=== PATIENT | female | born 1960 | race Caucasian/White ===

== ENCOUNTER → 2016-10-26 | Outpatient (REF) | payer BC ==
[2016-10-26 14:02] LABS: BLOOD UREA NITROGEN 20 MG/DL (7-18); CREATININE FOR GFR 0.72 MG/DL (0.55-1.02); GLUCOSE, FASTING 105 MG/DL (70-105)
[2016-10-26 14:03] LABS: ALBUMIN 3.4 GM/DL (3.2-5.2); ALBUMIN/GLOBULIN RATIO 1.03 (1.00-1.93); ALKALINE PHOSPHATASE 91 U/L (45-117); ALT/SGPT 27 U/L (12-78); ANION GAP 6 MEQ/L (8-16); AST/SGOT 12 U/L (15-37); BILIRUBIN,TOTAL 0.3 MG/DL (0.2-1.0); CALCIUM LEVEL 9.1 MG/DL (8.5-10.1); CARBON DIOXIDE LEVEL 31 MEQ/L (21-32); CHLORIDE LEVEL 106 MEQ/L (98-107); CHOLESTEROL LEVEL 211 MG/DL (<200); GLOMERULAR FILTRATION RATE > 60.0 (>51); POTASSIUM SERUM 4.6 MEQ/L (3.5-5.1); SODIUM LEVEL 143 MEQ/L (136-145); TOTAL PROTEIN 6.7 GM/DL (6.4-8.2); TRIGLYCERIDES LEVEL 116 MG/DL (<150)
[2016-10-26 14:17] LABS: MEAN CORPUSCULAR HEMOGLOBIN 30.7 pg (27.0-33.0); MEAN CORPUSCULAR HGB CONC 32.5 g/dl (32.0-36.5); MEAN CORPUSCULAR VOLUME 94.5 fl (80.0-96.0); RED CELL DISTRIBUTION WIDTH 13.7 % (11.5-14.5); WHITE BLOOD COUNT 6.8 K/mm3 (4.0-10.0)
== END ==
LOC: M LABDRAWC 12:12
PROVIDERS: ATTEND Family Medicine
DX: Z79.899 Other long term (current) drug therapy (principal)

== ENCOUNTER → 2017-11-08 | Outpatient (REF) | payer BC ==
[2017-11-08 13:03] LABS: ALBUMIN 3.3 GM/DL (3.2-5.2); ALBUMIN/GLOBULIN RATIO 0.92 (1.00-1.93); ALKALINE PHOSPHATASE 90 U/L (45-117); ALT/SGPT 22 U/L (12-78); ANION GAP 9 MEQ/L (8-16); AST/SGOT 10 U/L (7-37); BILIRUBIN,TOTAL 0.4 MG/DL (0.2-1.0); BLOOD UREA NITROGEN 12 MG/DL (7-18); CALCIUM LEVEL 8.5 MG/DL (8.5-10.1); CARBON DIOXIDE LEVEL 26 MEQ/L (21-32); CHLORIDE LEVEL 109 MEQ/L (98-107); CHOLESTEROL LEVEL 194 MG/DL (<200); CHOLESTEROL RISK RATIO 3.959 (<5); CREATININE FOR GFR 0.68 MG/DL (0.55-1.30); GLOMERULAR FILTRATION RATE > 60.0 (>51); GLUCOSE, FASTING 96 MG/DL (70-100); HDL CHOLESTEROL 49 MG/DL (>40); LDL CHOLESTEROL 118 MG/DL (<100); NON-HDL-C 145 MG/DL; POTASSIUM SERUM 4.8 MEQ/L (3.5-5.1); SODIUM LEVEL 144 MEQ/L (136-145); TOTAL PROTEIN 6.9 GM/DL (6.4-8.2); TRIGLYCERIDES LEVEL 134 MG/DL (<150); VALPROIC ACID (DEPAKOTE) 57.9 UG/ML (50.0-100.0)
[2017-11-08 13:16] LABS: BASO % 0.5 % (0.0-1.0); EOS # 0.2 10^3/uL (0.0-0.50); EOS % 2.3 % (0.0-3.0); HEMATOCRIT 41.9 % (36.0-47.0); HEMOGLOBIN 13.4 g/dl (12.0-15.5); IMMATURE GRANULOCYTE % 0.3 % (0-3.0); LYMPH # 3.2 10^3/uL (1.5-4.5); LYMPH % 43.1 % (24.0-44.0); MEAN CORPUSCULAR HEMOGLOBIN 30.1 pg (27.0-33.0); MEAN CORPUSCULAR VOLUME 94.2 fl (80.0-96.0); MONO # 0.7 10^3/uL (0.0-0.8); MONO % 8.8 % (0.0-5.0); NEUTROPHILS # 3.4 10^3/uL (1.8-7.7); PLATELET COUNT, AUTOMATED 251 10^3/uL (150-450); RED BLOOD COUNT 4.45 10^6/uL (4.00-5.40); RED CELL DISTRIBUTION WIDTH 13.9 % (11.5-14.5); WHITE BLOOD COUNT 7.5 10^3/uL (4.0-10.0)
[2017-11-08 13:48] LABS: TOTAL 25(OH) VITAMIN D 9.8 NG/ML (30.0-100.0)
[2017-11-09 10:20] LABS: HEPATITIS C VIRUS ABY INDEX 0.1 INDEX (<0.8)
== END ==
LOC: M LABDRAWC 11:35
DX: Z00.00 Encounter for general adult medical examination without abnormal findings (principal); Z79.899 Other long term (current) drug therapy
CPT/HCPCS: 80164

== ENCOUNTER → 2018-01-29 | Outpatient (REF) | payer BC ==
[2018-02-01 00:40] LABS: HPV HYBRID CAPTURE II Positive (Negative)
== END ==
LOC: M SFHCWAGY 08:52
PROVIDERS: ATTEND Nurse Practitioner Women's Health
DX: Z12.4 Encounter for screening for malignant neoplasm of cervix (principal); R87.618 Other abnormal cytological findings on specimens from cervix uteri
CPT/HCPCS: 87624; G0123

== ENCOUNTER → 2018-01-29 | Outpatient (CLI) | payer BC ==
--- NOTE | 2018-01-29 10:45 | REPMRS ---
Patient History The patient states she had a clinical breast exam in 01/29 Patient is postmenopausal and is nulliparous. Family history of breast cancer at age 86 in mother, breast cancer at age 86 in maternal aunt. Digital Woman Screen Mammo: January 29, 2018 - Exam #: [id number] Bilateral CC and MLO view(s) were taken. Technologist: Betty Bates, Technologist Prior study comparison: September 08, 2015, bilateral digital woman screen mammo, performed at [facility] [employer] [facility]. March 23, 2010, bilateral digital woman screen mammo, performed at [facility] [employer] [facility]. February 21, 2008, bilateral digital woman screen mammo, performed at [facility]. FINDINGS: There are scattered fibroglandular densities. There has been no change in the appearance of the mammogram from the prior studies. There is a mild amount of scattered fibroglandular density which is fairly symmetric. There is no interval development of dominant mass, architectural distortion, or clustered microcalcification suggestive of malignancy. 3-D tomosynthesis shows no additional findings. Assessment: BI-RADS/ACR category 1 mammogram. Negative. Recommendation Breast MRI of both breasts in 6 months. Routine screening mammogram of both breasts in 1 year (for women over age 40). This patient's Lifetime Breast Cancer RIsk is estimated at 22.9 %. Annual screening Breast MRI scanniing is recommended for patient's whose lifetime risk assessment is over 20%. This mammogram was interpreted with the aid of an FDA-approved computer-aided dectection system. Electronically Signed By: Wil Marques MD 01/29/18 [id number]
== END ==
LOC: M WHC 08:49
PROVIDERS: ATTEND Nurse Practitioner Women's Health
DX: Z12.31 Encounter for screening mammogram for malignant neoplasm of breast (principal); Z78.0 Asymptomatic menopausal state; Z80.3 Family history of malignant neoplasm of breast

== ENCOUNTER → 2018-04-22 | Outpatient (REF) | payer BC | LOC: M LAB REF 13:41 | PROVIDERS: ATTEND Obstetrics & Gynecology | DX: R87.619 Unspecified abnormal cytological findings in specimens from cervix uteri (principal) ==

== ENCOUNTER 2018-11-21 10:20 | Emergency (ER) | payer BC ==
[~2018-11-21] VITALS: Ht 175.3 cm; Wt 97.0 kg
[~2018-11-21 10:20] MED LIST: DEPA1TAB3 PO
[2018-11-21] MEDS ORDERED: MAG400TA (10:26)
[2018-11-21] MEDS ORDERED: LIDOCAINE 5% (LIDODERM) PATCH TD ONE (11:15)
[2018-11-21] MEDS ORDERED: LIDO5DIS41 TOP (11:51)
[2018-11-21 11:56] VITALS: BP 149/75
== END 2018-11-21 12:00 | disposition home or self-care (01) ==
LOC: M ED 10:20
DX: M54.32 Sciatica, left side (principal); Z85.41 Personal history of malignant neoplasm of cervix uteri; Z88.8 Allergy status to other drugs, medicaments and biological substances; Z79.899 Other long term (current) drug therapy

== ENCOUNTER → 2019-11-18 | Outpatient (CLI) | payer MEDICAID ==
[~2019-11-18] MED LIST changes: +LIDO5DIS41 TOP; +MAG400TA
--- NOTE | 2019-11-18 14:03 | REPMRS ---
Patient History The patient states she has not had a clinical breast exam in over a year. Patient is postmenopausal, has history of cervical cancer at age 59, and is nulliparous. Family history of breast cancer at age 86 in mother, breast cancer at age 86 in maternal aunt. 3D TOMOSYNTHESIS WAS PERFORMED. SEVERO Chatterjee. Digital Woman Screen Mammo: November 18, 2019 - Exam #: [id number] Bilateral CC and MLO view(s) were taken. Technologist: Marium Hennessy, Technologist Prior study comparison: January 29, 2018, bilateral digital woman screen mammo performed at [facility]. 2017, bilateral digital mammo screening bilat, performed at [facility]. FINDINGS: There are scattered fibroglandular densities. There has been no change in the appearance of the mammogram from the prior studies. There is a mild amount of residual fibroglandular tissue which is fairly symmetric. There is no interval development of dominant mass, architectural distortion, or clustered microcalcification suggestive of malignancy. Assessment: BI-RADS/ACR category 1 mammogram. Negative Mammogram. Recommendation Routine screening mammogram in 1 year (for women over age 40). This mammogram was interpreted with the aid of an FDA-approved computer-aided dectection system. THE LIFETIME RISK OF BREAST CANCER IS 22.3%, THEREFORE SUPPLEMENTAL SCREENING MRI OF THE BREASTS IS RECOMMENDED IN 6 MONTHS. Electronically Signed By: Sarkis Valentin MD 11/18/19 [id number]
== END ==
LOC: M WHC 12:50
PROVIDERS: ATTEND Family Medicine
DX: Z12.31 Encounter for screening mammogram for malignant neoplasm of breast (principal); Z78.0 Asymptomatic menopausal state; Z85.41 Personal history of malignant neoplasm of cervix uteri; Z80.3 Family history of malignant neoplasm of breast

== ENCOUNTER 2020-06-18 11:34 | Inpatient (IN) | payer MEDICAID ==
[2020-06-18] VITALS (20 sets, daily range): BP systolic 90–144; BP diastolic 51–77
[~2020-06-18] VITALS: Ht 175.3 cm; Wt 84.4 kg
[~2020-06-18 11:34] MED LIST changes: -MAG400TA; +MAGN400T35
[2020-06-18] MEDS ORDERED: ACETAMINOPHEN 500 MG TAB PO ONE (11:55)
--- NOTE | 2020-06-18 12:25 | REP ---
INDICATION: altered. COMPARISON: None. TECHNIQUE: Helical scanning is acquired. 5 mm axial images were reformatted. Coronal MPR images were generated. FINDINGS: Bone window settings demonstrate an intact bony calvarium. There is no evidence of skull fracture or incidental bony calvarial lesion. The visualized paranasal sinuses appear clear. No intraorbital abnormality is seen. On soft tissue window setting images; the lateral, third, and fourth ventricles are normal in size and position. Valentin-white differentiation pattern is normal above and below the tentorium. There are is no evidence of intracranial hemorrhage. No mass, edema, infarction, or midline shift is seen. No extra-axial fluid collection is appreciated. There is vascular calcification noted in the distal internal carotid arteries. Hyperostosis frontalis interna is noted incidentally. This is normal variant. IMPRESSION: Mild vascular calcification. No acute intracranial abnormality.. <Electronically signed by Wil Marques > 06/18/20 [id number]
--- NOTE | 2020-06-18 12:26 | REP ---
INDICATION: SEPSIS/SHOCK. COMPARISON: None. TECHNIQUE: Single portable AP view of the chest was performed. FINDINGS: There is no acute infiltrate or pulmonary edema. Lungs are clear. The heart is not significantly enlarged. The mediastinal silhouette is unremarkable. The visualized osseous structures are intact.Right central venous catheter is seen with the tip in the superior vena cava. IMPRESSION: No acute pulmonary disease. <Electronically signed by Sarkis Valentin > 06/18/20 [id number]
[2020-06-18 12:34] LABS: VENOUS BASE EXCESS 3.7 (-2.0-2.0); VENOUS HCO3 27.5 MEQ/L (23.0-27.0); VENOUS O2 SATURATION 93.4 % (60.0-80.0); VENOUS PARTIAL PRESSURE CO2 37.7 mmHg (38.0-50.0); VENOUS PARTIAL PRESSURE O2 78.4 mmHg (30.0-50.0); VENOUS PH 7.481 UNITS (7.330-7.430); VENOUS STANDARD HCO3 27.8 MEQ/L; VENOUS TOTAL CO2 28.7 MEQ/L (24.0-28.0)
[2020-06-18] MEDS ORDERED: ELIQ5TAB PO (12:35)
[2020-06-18] MEDS ORDERED: GABA-282 PO (12:35)
[2020-06-18] MEDS ORDERED: PROC10TA4 PO (12:35)
[2020-06-18] MEDS ORDERED: ONDA8TAB10 PO (12:35)
[2020-06-18] MEDS ORDERED: OXYC-517 PO (12:35)
[2020-06-18] MEDS ORDERED: TRAM50TA2 PO (12:35)
[2020-06-18 12:41] LABS: LYMPH # 0.1 10^3/uL (1.5-5.0); LYMPH % 54.2 % (24.0-44.0); MEAN CORPUSCULAR HEMOGLOBIN 31.4 pg (27.0-33.0); MEAN CORPUSCULAR HGB CONC 32.4 g/dl (32.0-36.5); MEAN CORPUSCULAR VOLUME 97.1 fl (80.0-96.0); MONO % 16.7 % (2.0-8.0); NEUTROPHILS % 24.9 % (36.0-66.0); RED BLOOD COUNT 1.75 10^6/uL (4.00-5.40)
[2020-06-18 12:44] LABS: NEUTROPHILS # 0.1 10^3/uL (1.5-8.5); PLATELET COUNT, AUTOMATED 43 10^3/uL (150-450)
[2020-06-18 12:47] LABS: WHITE BLOOD COUNT 0.2 10^3/uL (4.0-10.0)
[2020-06-18 12:48] LABS: HEMOGLOBIN 5.5 g/dl (12.0-15.5)
[2020-06-18] MEDS ORDERED: NS 2,530 ML in IV 1 EA IV ONE (12:55)
[2020-06-18] MEDS ORDERED: CEFEPIME HCL 2 GM in D5W MINI-BAG PLUS 50 ML IV ONE (12:55)
[2020-06-18 12:57] LABS: INR 1.96; PROTHROMBIN TIME 22.8 SECONDS (12.5-14.3)
[2020-06-18 12:58] LABS: PARTIAL THROMBOPLASTIN TIME 36.3 SECONDS (24.2-38.5)
[2020-06-18 13:13] LABS: ALBUMIN 2.2 GM/DL (3.2-5.2); ALT/SGPT 28 U/L (12-78); AMYLASE 45 U/L (25-115); BILIRUBIN,DIRECT 0.3 MG/DL (0.0-0.2); BILIRUBIN,TOTAL 0.5 MG/DL (0.2-1.0); BLOOD UREA NITROGEN 38 MG/DL (7-18); CALCIUM LEVEL 7.9 MG/DL (8.5-10.1); CARBON DIOXIDE LEVEL 30 MEQ/L (21-32); CHLORIDE LEVEL 94 MEQ/L (98-107); CK-MB VALUE MASS < 1.0 NG/ML (<3.6); CPK CREATINE PHOSPHOKINASE 627 U/L (26-192); CREATININE FOR GFR 2.95 MG/DL (0.55-1.30); GLOMERULAR FILTRATION RATE 17.3 (>51); GLUCOSE, FASTING 128 MG/DL (70-100); MB/CK RELATIVE INDEX 0.16 (< OR =4); SODIUM LEVEL 133 MEQ/L (136-145); TOTAL PROTEIN 5.3 GM/DL (6.4-8.2); TROPONIN I 0.02 NG/ML (< 0.10)
[2020-06-18 13:31] LABS: VALPROIC ACID (DEPAKOTE) 44.7 UG/ML (50.0-100.0)
[2020-06-18] MEDS ORDERED: DIVA250T67 PO (13:37)
[2020-06-18] MEDS ORDERED: ATIV1TAB10 PO (13:37)
[2020-06-18] MEDS ORDERED: ACETAMINOPHEN TAB 650MG DOSE (2X325MG) PO PRN (14:20)
[2020-06-18] MEDS ORDERED: PROCHLORPERAZINE 5 MG TAB (S0183) PO PRN (14:35)
[2020-06-18] MEDS ORDERED: LORazepam 0.5 MG TAB PO PRN (14:35)
[2020-06-18] MEDS ORDERED: oxyCODONE 5MG TAB PO PRN (14:35)
[2020-06-18] MEDS ORDERED: ONDANSETRON 4 MG TAB PO PRN (14:35)
--- NOTE | 2020-06-18 14:57 | HPEPDOC ---
General Date of Admission 06/18/20 Date of Service: June 18, 2020 Chief Complaint The patient is a 60-year-old female admitted with a reason for visit of General Weakness. Source: Patient Exam Limitations: No limitations Severity: Moderate History of Present Illness Patient is 60 years old female with past history of cervical carcinoma, seizure disorder presented to the hospital with altered mental status and fever. According to her brother was in the room patient developed altered mental status in the morning associated with fever of 104 Fahrenheit. Patient was diagnosed with relapsing cervical carcinoma and received chemotherapy in [facility] on June 09. After that patient became progressively weak, complained of intensive nausea and multiple episodes of vomiting. Patient was diagnosed with cervical carcinoma 2 years ago and initially she received treatment with radiation and chemotherapy. In ER patient was found to have pancytopenia with white blood count 0.2, hemoglobin 5.5 platelets 43, creatinine 2.9. Head CT negative for stroke. Chest x-ray negative for acute pulmonary diseases. When I saw patient she was alert, oriented and awake. Home Medications Scheduled Apixaban (Eliquis) 5 Mg Tablet, 5 MG PO BID, (Reported) Divalproex Sodium (Depakote) 500 Mg Tablet.dr, 500 MG PO BID, (Reported) Divalproex Sodium (Divalproex Sodium) 250 Mg Tablet.dr, 250 MG PO QHS, (Reported) TAKE WITH 500 MG TAB. 750MG QHS Gabapentin (Gabapentin) 300 Mg Capsule, 300 MG PO QHS, (Reported) Scheduled PRN Lorazepam (Ativan) 0.5 Mg Tablet, 0.5 MG PO QHS PRN for ANXIETY, (Reported) Ondansetron HCl (Ondansetron HCl) 8 Mg Tablet, 8 MG PO TID PRN for NAUSEA OR VOMITING, (Reported) Oxycodone HCl (Oxycodone HCl) 5 Mg Tablet, 5 MG PO Q4H PRN for PAIN, (Reported) Prochlorperazine Maleate (Prochlorperazine Maleate) 10 Mg Tablet, 10 MG PO Q6H PRN for NAUSEA OR VOMITING, (Reported) Allergies Coded Allergies: phenobarbital (Verified Allergy, Unknown, RASH, 06/28/18) phenytoin (Verified Allergy, Unknown, RASH, 06/28/18) Past Medical History Medical History Seizure disorder, cervical carcinoma, history of DVT currently on the apixaban Family History FATHER: 87 YRS MOTHER: 87 YRS, BREAST CA, TRIPLE NEGATIVE, DIAGNOSED WITH CANCER Social History * Smoker: former Smoker Alcohol: Denies Drugs: denies A-FIB/CHADSVASC A-FIB History Current/History of A-Fib/PAF?: No Current PO Anticoag Therapy: No Review of Systems Constitutional: Reports: Chills, Fever, Weakness, Fatigue Eyes: Denies: Pain, Vision change ENT: Denies: Head Aches, Ear Pain Skin: Denies: Rash, Lesions Pulmonary: Denies: Dyspnea, Cough Cardiovascular: Denies: Chest Pain, Palpitations Gastrointestinal: Reports: Nausea, Vomiting Genitourinary: Denies: Dysuria, Frequency Hematologic: Denies: Bruising Endocrine: Denies: Polydipsia, Polyphagia Musculoskeletal: Denies: Neck Pain Neurological: Denies: Weakness Psych: Reports: Mood Normal Physical Examination General Exam: Positive: Alert, Cooperative Eye Exam: Positive: PERRLA ENT Exam: Positive: Atraumatic Neck Exam: Positive: Supple; Negative: JVD Chest Exam: Positive: Clear to auscultation Heart Exam: Positive: Rate Normal Telemetry: Positive: No significant arrhythmia Abdomen Exam: Positive: Normal bowel sounds Extremity Exam: Negative: Clubbing, Cyanosis Skin Exam: Negative: Rash, Breakdown Neuro Exam: Positive: Cranial Nerves 3-12 NL Psych Exam: Positive: Mental status NL Vital Signs Vital Signs Date Time Temp Pulse Resp B/P (MAP) Pulse Ox O2 Delivery O2 Flow Rate FiO2 06/18/20 13:19 99.7 109 16 100 Nasal Cannula 1.0 06/18/20 13:15 85/49 (61) Laboratory Data Labs 24H Laboratory Tests 2 06/18/20 11:58: Prothrombin Time 22.8H, Prothromb Time International Ratio 1.96, Activated Partial Thromboplast Time 36.3, Anion Gap 9, Glomerular Filtration Rate 17.3L, Lactic Acid Level 1.8, Calcium Level 7.9L, Total Bilirubin 0.5, Direct Bilirubin 0.3H, Aspartate Amino Transf (AST/SGOT) 60H, Alanine Aminotransferase (ALT/SGPT) 28, Alkaline Phosphatase 131H, Total Creatine Kinase 627H, Creatine Kinase MB < 1.0, Creatine Kinase MB Relative Index 0.16, Troponin I 0.02, C-Reactive Protein, Quantitative 26.50H, Total Protein 5.3L, Albumin 2.2L, Albumin/Globulin Ratio 0.7L, Amylase Level 45, Valproic Acid (Depakene) Level 44.7L 06/18/20 12:00: Blood Gas Bicarbonate Standard 27.8, Venous Blood pH 7.481H, Venous Blood Partial Pressure CO2 37.7L, Venous Blood Partial Pressure O2 78.4H, Venous Blood Total Carbon Dioxide 28.7H, Venous Blood HCO3 27.5H, Venous Blood Oxygen Saturation 93.4H, Venous Blood Base Excess 3.7H 06/18/20 12:01: Immature Granulocyte % (Auto) 4.2H, Neutrophils (%) (Auto) 24.9L, Lymphocytes (%) (Auto) 54.2H, Monocytes (%) (Auto) 16.7H, Eosinophils (%) (Auto) 0.0, Basophils (%) (Auto) 0.0, Neutrophils # (Auto) 0.1L, Lymphocytes # (Auto) 0.1L, Monocytes # (Auto) 0.0, Eosinophils # (Auto) 0.0, Basophils # (Auto) 0.0, Nucleated Red Blood Cells % (auto) 41.7H, Immature Platelet Fraction 4.6 CBC/BMP Laboratory Tests 06/18/20 11:58 06/18/20 12:01 Microbiology Microbiology 06/18/20 Respiratory Virus Panel (PCR) ([facility]) - Final, Complete 06/18/20 Blood Culture, Received Pending Assessment/Plan Patient is 60 years old female with past history of cervical carcinoma, seizure disorder presented to the hospital with altered mental status and fever. According to her brother was in the room patient developed altered mental status in the morning associated with fever of 104 Fahrenheit. Patient was diagnosed with relapsing cervical carcinoma and received chemotherapy in [facility] on June 09. After that patient became progressively weak, complained of intensive nausea and multiple episodes of vomiting. Patient was diagnosed with cervical carcinoma 2 years ago and initially she received treatment with radiation and chemotherapy. In ER patient was found to have pancytopenia with white blood count 0.2, hemoglobin 5.5 platelets 43, creatinine 2.9. Head CT negative for stroke. Chest x-ray negative for acute pulmonary diseases. When I saw patient she was alert, oriented and awake. Problems (1) Sepsis Status: Acute Problem Text: Secondary to neutropenia No obvious source of infection CT abdomen/pelvis Zosyn IV IV fluid Will check pro calcitonin sedimentation rate and CRP (2) Neutropenic fever Status: Acute Problem Text: Secondary to chemotherapy Continue broad-spectrum antibiotic therapy We'll give 2 units of blood H&H every 6 hours (3) Pancytopenia Status: Acute Problem Text: Most likely secondary to chemotherapy Anticoagulation on hold (4) Cervical carcinoma Status: Chronic Problem Text: Follow-up with oncologist in the outpatient settings (5) History of DVT (deep vein thrombosis) Status: Chronic Problem Text: Eliquis on hold due to pancytopenia (6) OPHELIA (acute kidney injury) Status: Acute Problem Text: Renal combined with prerenal 2/2 chemotherapy and sepsis IV fluid Continue to monitor Plan / VTE VTE Prophylaxis Ordered?: No VTE Exclusion Pharmacological: Bleeding Risk AISSATOU NIEVES DO June 18, 2020 14:57
--- NOTE | 2020-06-18 15:50 | REP ---
INDICATION: sepsis. COMPARISON: None TECHNIQUE: Limited noncontrast enhanced standard helical technique FINDINGS: The lung bases are clear. Mild bilateral dependent subsegmental atelectatic changes are present. There is abnormal retroperitoneal air density seen in the right para aortic region, surrounding the inferior vena cava and right renal vein, with abnormal air density with in the inferior vena cava itself. There is air density seen abutting the posterior wall the duodenal sweep. This air density could in fact be arising from the duodenum itself which raises the question of possible perforation. There is mild right-sided hydronephrosis and mild right Amina nephric stranding with slight right renal enlargement. There are bilateral nonobstructing nephroliths. Limited evaluation of the liver and spleen show no gross abnormalities. Limited evaluation of the pancreas shows no gross abnormalities. There is what is most likely benign bilateral adrenal gland thickening. There is cholelithiasis. There is no evidence of intestinal obstruction. There is no evidence of free fluid. The osseous structures appear to be within normal limits for the patient's age. IMPRESSION: There is abnormal retroperitoneal air density in the retroperitoneum with a small amount of abnormal air density within the inferior vena cava itself. These are concerning findings for infectious etiology. I cannot say with certainty whether not there is actual perforation of the posterior wall of the duodenal sweep which could be at least in part if not solely responsible for the imaging findings. Other findings as described above. These findings were discussed with Dr. Sofia at this time. <Electronically signed by Yonatan Bonds > 06/18/20 [id number]
[2020-06-18] MEDS: GASTROGRAFIN SOLUTION 30ML PO SCH ×2 (16:36→17:00)
--- NOTE | 2020-06-18 18:50 | ECGEPIP ---
[facility] - ED Test Date: 2020-06-18 Pat Name: PHANI BESS Department: Room: - Gender: Female Site Monitor: EVARISTO : 1960 Requested By: Ly Gillette Order Number: [id number] Reading MD: Matt Bender Measurements Intervals [place] Rate: 107 P: 57 IA: 142 QRS: 65 QRSD: 90 T: 29 QT: 318 QTc: 424 Interpretive Statements Sinus tachycardia POOR R WAVE PROGRESSION NO PRIORS FOR COMPARISON Nonspecific ST abnormality Electronically Signed on 06-18-2020 18:50:25 EDT by Matt Bender
[2020-06-18] MEDS ORDERED: NS 500 ML IV ONE (20:30)
[2020-06-18] MEDS ORDERED: DIVALPROEX 500 MG TAB PO SCH (21:00)
[2020-06-18] MEDS ORDERED: PIPERACILLIN/TAZOBACTAM SOD 3.375 GM in D5W MINI-BAG PLUS 50 ML IV SCH (21:00)
[2020-06-18] MEDS ORDERED: GABAPENTIN 300 MG CAP PO SCH (21:00)
[2020-06-18] MEDS ORDERED: DIVALPROEX 250 MG TAB PO SCH (21:00)
[2020-06-18 21:12] LABS: HEMATOCRIT 21.9 % (36.0-47.0); HEMOGLOBIN 7.2 g/dl (12.0-15.5)
[2020-06-18 22:04] LABS: C REACTIVE PROTEIN QUANTITATIV 22.5 MG/DL (0.00-0.30); CREATININE FOR GFR 2.82 MG/DL (0.55-1.30); GLOMERULAR FILTRATION RATE 18.3 (>51); POTASSIUM SERUM 3.2 MEQ/L (3.5-5.1)
[2020-06-18] MEDS: NS 1,000 ML IV SCH ×2 (22:30→23:15)
[2020-06-18] MEDS: KCL 10MEQ/100ML SWI (KRUN) 10 MEQ in IV 1 EA IV SCH ×2 (22:56→23:51)
--- NOTE | 2020-06-18 22:57 | CR.PDOC ---
General Surgery Consultation Date of Consultation 06/18/20 History and Physical CONSULT REPORT FOR: hospitalist service REASON FOR CONSULTATION: ?duodenal perforation HISTORY OF PRESENT ILLNESS: I was asked to evaluate Ms. Quintanilla who is a 60 F with metastatic cervical cancer, known to have metastasized to the vena cava. She had previously had chemo/radiation two years ago and was noted sometime in may to have had recurrence/metastases and she was restarted on chemotherapy 2 weeks ago. She was mainly having back pain that led to the workup leading to the diagnosis of metastases recurrence. Patient reports feeling week, anorexic, sometimes nauseated but no vomiting. She had a loose stool this morning. She was noted to be febrile to 104 this morning which led her to be brought to the ER here. In the ER she had initial soft bp which responded to IVFs. Initial workup in the ED shows air around the vena cava. This was later repeated with oral contrast and the radiologist called that there is most likely a retroperitoneal perforation coming from the third portion of the duodenum. I was informed of the reading and asked to evaluate the patient. PAST MEDICAL HISTORY: 1. metastatic cervical cancer 2. dvt on Eliquis. Last taken this morning. 3. PAST SURGICAL HISTORY: INCLUDES: 1. infusaport PREVIOUS ANESTHESIA REACTIONS: ALLERGIES: Please see below. FAMILY HISTORY: . HOME MEDICATIONS: Please see below. REVIEW OF SYSTEMS: GENERAL: [Denies chills, reports weight gain, reports feeling febrile yesterday]. HEENT: [Denies blurred vision and double vision. Denies ear symptoms. Denies hoarseness]. NECK: Denies any neck pain]. CARDIOVASCULAR: [Denies chest pain and palpitations]. MUSCULOSKELETAL: [Denies arthralgias, back pain and thrombophlebitis]. SKIN: [Denies rash]. NEUROLOGIC: [Denies headache, stroke and transient ischemic attack]. PSYCHIATRIC: [Denies anxiety and depression]. ENDOCRINE: [Denies thyroid disease]. HEMATOLOGY/ONCOLOGY: [Denies bleeding or clotting disorder]. HEART: [Denies any chest pains, palpitations, paroxysmal dyspnea, orthopnea]. PULMONARY: [Denies chronic cough, dyspnea and wheezing]. GASTROINTESTINAL: [Denies rectal bleeding, family history of colon cancer, constipation, diarrhea, dysphagia, heartburn and jaundice]. GENITOURINARY: [Denies dysuria, frequency, hematuria and nocturia]. ENDOCRINE: [Denies polydipsia, polyphagia, polyuria, heat or cold intolerance]. INFECTIOUS: [Denies any recent upper respiratory tract infection, UTI, need for use of antibiotics]. NUTRITION: [Reports good appetite]. PHYSICAL EXAMINATION: VITALS SIGNS: Please see below. GENERAL APPEARANCE:[Patient seen, laying in bed, awake, alert, and oriented. Comfortable, in no acute distress]. SKIN: [Warm and moist]. HEENT: [Normocephalic, atraumatic. [place] palpebral conjunctiva, anicteric sclerae. Lips and mucosa appear moist]. NECK: [Supple, no thyromegaly. No obvious jugular venous distention]. LUNGS: [Clear to auscultation bilaterally. No wheezing appreciated]. HEART: [No chest wall abnormalities. Regular rate and rhythm with no murmurs appreciated]. ABDOMEN: Abdomen is , soft, . [No hepatosplenomegaly. No umbilical or groin herniations, nondistended. No noticeable rebound or guarding. No grimacing with palpation. No rebound tenderness. No masses appreciated]. EXTREMITIES: [Extremities have no deformities. No edema identified] ANCILLARIES: . LABORATORY DATA: Please see below. IMAGING STUDIES: . IMPRESSION AND PLAN: . Vital Signs Vital Signs Date Time Temp Pulse Resp B/P (MAP) Pulse Ox O2 Delivery O2 Flow Rate FiO2 06/18/20 21:20 98.0 88 18 102/51 97 Room Air 06/18/20 18:15 1.0 Laboratory Data Labs 24H Laboratory Tests 2 06/18/20 11:58: Prothrombin Time 22.8H, Prothromb Time International Ratio 1.96, Activated Partial Thromboplast Time 36.3, Anion Gap 9, Glomerular Filtration Rate 17.3L, Lactic Acid Level 1.8, Calcium Level 7.9L, Total Bilirubin 0.5, Direct Bilirubin 0.3H, Aspartate Amino Transf (AST/SGOT) 60H, Alanine Aminotransferase (ALT/SGPT) 28, Alkaline Phosphatase 131H, Total Creatine Kinase 627H, Creatine Kinase MB < 1.0, Creatine Kinase MB Relative Index 0.16, Troponin I 0.02, C-Reactive Protein, Quantitative 26.50H, Total Protein 5.3L, Albumin 2.2L, Albumin/Globulin Ratio 0.7L, Amylase Level 45, Valproic Acid (Depakene) Level 44.7L 06/18/20 12:00: Blood Gas Bicarbonate Standard 27.8, Venous Blood pH 7.481H, Venous Blood Partial Pressure CO2 37.7L, Venous Blood Partial Pressure O2 78.4H, Venous Blood Total Carbon Dioxide 28.7H, Venous Blood HCO3 27.5H, Venous Blood Oxygen Saturation 93.4H, Venous Blood Base Excess 3.7H 06/18/20 12:01: Immature Granulocyte % (Auto) 4.2H, Neutrophils (%) (Auto) 24.9L, Lymphocytes (%) (Auto) 54.2H, Monocytes (%) (Auto) 16.7H, Eosinophils (%) (Auto) 0.0, Basophils (%) (Auto) 0.0, Neutrophils # (Auto) 0.1L, Lymphocytes # (Auto) 0.1L, Monocytes # (Auto) 0.0, Eosinophils # (Auto) 0.0, Basophils # (Auto) 0.0, Nucleated Red Blood Cells % (auto) 41.7H, Immature Platelet Fraction 4.6 06/18/20 20:51: 06/18/20 20:59: Erythrocyte Sedimentation Rate 93H, Anion Gap 8, Glomerular Filtration Rate 18.3L, Calcium Level 7.0L, C-Reactive Protein, Quantitative 22.50H CBC/BMP Laboratory Tests 06/18/20 11:58 06/18/20 12:01 06/18/20 20:59 Microbiology Microbiology 06/18/20 Blood Culture, Received Pending 06/18/20 Respiratory Virus Panel (PCR) ([facility]) - Final, Complete 06/18/20 Blood Culture, Received Pending Home Medications Scheduled Apixaban (Eliquis) 5 Mg Tablet, 5 MG PO BID, (Reported) Divalproex Sodium (Depakote) 500 Mg Tablet.dr, 500 MG PO BID, (Reported) Divalproex Sodium (Divalproex Sodium) 250 Mg Tablet.dr, 250 MG PO QHS, (Reported) TAKE WITH 500 MG TAB. 750MG QHS Gabapentin (Gabapentin) 300 Mg Capsule, 300 MG PO QHS, (Reported) Scheduled PRN Lorazepam (Ativan) 0.5 Mg Tablet, 0.5 MG PO QHS PRN for ANXIETY, (Reported) Ondansetron HCl (Ondansetron HCl) 8 Mg Tablet, 8 MG PO TID PRN for NAUSEA OR VOMITING, (Reported) Oxycodone HCl (Oxycodone HCl) 5 Mg Tablet, 5 MG PO Q4H PRN for PAIN, (Reported) Prochlorperazine Maleate (Prochlorperazine Maleate) 10 Mg Tablet, 10 MG PO Q6H PRN for NAUSEA OR VOMITING, (Reported) Allergies Coded Allergies: phenobarbital (Verified Allergy, Intermediate, RASH, 06/18/20) phenytoin (Verified Allergy, Intermediate, RASH, 06/18/20) ANDREW RAMIREZ MD June 18, 2020 22:57
[2020-06-18] MEDS ORDERED: MORPHINE 2 MG/ML 1ML VIAL (J2270) IV PRN (23:15)
--- NOTE | 2020-06-18 23:33 | DS.PDOC ---
Discharge Summary General Date of Admission June 18, 2020 at 14:19 Date of Discharge 06/18/20 Discharge Summary PROCEDURES PERFORMED DURING STAY: [None]. ADMITTING DIAGNOSES: 1. Sepsis 2. Neutropenic fever 3. Pancytopenia 4. Acute kidney injury DISCHARGE DIAGNOSES: 1. Sepsis 2. Neutropenic fever 3. Pancytopenia 4. Acute kidney injury 5. Perforation of third part of duodenum with free air 6. Possibly free air in the inferior vena cava COMPLICATIONS/CHIEF COMPLAINT: Neutropenic Fever. HISTORY OF PRESENT ILLNESS/ HOSPITAL COURSE: Patient is 60 years old female with past history of cervical carcinoma, seizure disorder presented to the hospital with altered mental status and fever. According to her brother was in the room patient developed altered mental status in the morning associated with fever of 104 Fahrenheit. Patient was diagnosed with relapsing cervical carcinoma and received chemotherapy in [facility] on June 09. After that patient became progressively weak, complained of intensive nausea and multiple episodes of vomiting. [facility] In ER patient was found to have pancytopenia with white blood count 0.2, hemoglobin 5.5 platelets 43, creatinine 2.9. Head CT negative for stroke. Chest x-ray negative for acute pulmonary diseases. For the neutropenic fever she was being treated with Zosyn. On same day of admission at night I received a call from [facility] informing me that patient has operation in the third part of the duodenum with free air and they think they see contrast also extending into the inferior vena cava with free air. I contacted Dr Henson with these results who evaluated the patient and recommended transfer. I contacted [facility] where her oncologist is for transfer but they have been capacity. [facility] was able to accept the patient for surgical evaluation. Patient agrees for transfer. Patient wishes to be DNR/DNI and new MOLST form was completed and signed. DISCHARGE MEDICATIONS: Please see below. ALLERGIES: Please see below. PHYSICAL EXAMINATION ON DISCHARGE: VITAL SIGNS: Please see below. Patient was examined prior to transfer she appeared comfortable and not in any distress surprisingly examination of her abdomen reveals no tenderness to light or deep palpation no rebound tenderness she had bowel sounds present. Lungs are clear without wheezing or crackles. Heart rate was regular. LABORATORY DATA: Please see below. IMAGING: First CT abdomen/pelvis: Impressions: There is abnormal retroperitoneal air density in the retroperitoneum with a small amount of abnormal air density within the inferior vena cava itself. These are concerning findings for infectious etiology. I cannot say with certainty whether not there is actual perforation of the posterior wall of the duodenal sweep which could be at least in part if not solely responsible for the imaging findings. Repeat CT with contrast results verbally as above in summary formal report not back yet. PROGNOSIS: guarded ACTIVITY: [As tolerated]. DIET: NPO DISPOSITION: transfer to [facility] in [place] DISCHARGE CONDITION: [Stable]. TIME SPENT ON DISCHARGE: 45 minutes. Vital Signs/I&Os Vital Signs Date Time Temp Pulse Resp B/P (MAP) Pulse Ox O2 Delivery O2 Flow Rate FiO2 06/18/20 22:50 97.9 80 16 109/60 93 Room Air 06/18/20 18:15 1.0 Laboratory Data Labs 24H Laboratory Tests 2 06/18/20 11:58: Prothrombin Time 22.8H, Prothromb Time International Ratio 1.96, Activated Partial Thromboplast Time 36.3, Anion Gap 9, Glomerular Filtration Rate 17.3L, Lactic Acid Level 1.8, Calcium Level 7.9L, Total Bilirubin 0.5, Direct Bilirubin 0.3H, Aspartate Amino Transf (AST/SGOT) 60H, Alanine Aminotransferase (ALT/SGPT) 28, Alkaline Phosphatase 131H, Total Creatine Kinase 627H, Creatine Kinase MB < 1.0, Creatine Kinase MB Relative Index 0.16, Troponin I 0.02, C- Reactive Protein, Quantitative 26.50H, Total Protein 5.3L, Albumin 2.2L, Albumin/Globulin Ratio 0.7L, Amylase Level 45, Valproic Acid (Depakene) Level 44.7L 06/18/20 12:00: Blood Gas Bicarbonate Standard 27.8, Venous Blood pH 7.481H, Venous Blood Partial Pressure CO2 37.7L, Venous Blood Partial Pressure O2 78.4H, Venous Blood Total Carbon Dioxide 28.7H, Venous Blood HCO3 27.5H, Venous Blood Oxygen Saturation 93.4H, Venous Blood Base Excess 3.7H 06/18/20 12:01: Immature Granulocyte % (Auto) 4.2H, Neutrophils (%) (Auto) 24.9L, Lymphocytes (%) (Auto) 54.2H, Monocytes (%) (Auto) 16.7H, Eosinophils (%) (Auto) 0.0, Basophils (%) (Auto) 0.0, Neutrophils # (Auto) 0.1L, Lymphocytes # (Auto) 0.1L, Monocytes # (Auto) 0.0, Eosinophils # (Auto) 0.0, Basophils # (Auto) 0.0, Nucleated Red Blood Cells % (auto) 41.7H, Immature Platelet Fraction 4.6 06/18/20 20:51: 06/18/20 20:59: Erythrocyte Sedimentation Rate 93H, Anion Gap 8, Glomerular Filtration Rate 18.3L, Calcium Level 7.0L, C-Reactive Protein, Quantitative 22.50H CBC/BMP Laboratory Tests 06/18/20 11:58 06/18/20 12:01 06/18/20 20:59 Microbiology Microbiology 06/18/20 Blood Culture, Received Pending 06/18/20 Respiratory Virus Panel (PCR) ([facility]) - Final, Complete 06/18/20 Blood Culture, Received Pending Discharge Medications Scheduled Apixaban (Eliquis) 5 Mg Tablet, 5 MG PO BID, (Reported) Divalproex Sodium (Depakote) 500 Mg Tablet.dr, 500 MG PO BID, (Reported) Divalproex Sodium (Divalproex Sodium) 250 Mg Tablet.dr, 250 MG PO QHS, (Reported) TAKE WITH 500 MG TAB. 750MG QHS Gabapentin (Gabapentin) 300 Mg Capsule, 300 MG PO QHS, (Reported) Scheduled PRN Lorazepam (Ativan) 0.5 Mg Tablet, 0.5 MG PO QHS PRN for ANXIETY, (Reported) Ondansetron HCl (Ondansetron HCl) 8 Mg Tablet, 8 MG PO TID PRN for NAUSEA OR VOMITING, (Reported) Oxycodone HCl (Oxycodone HCl) 5 Mg Tablet, 5 MG PO Q4H PRN for PAIN, (Reported) Prochlorperazine Maleate (Prochlorperazine Maleate) 10 Mg Tablet, 10 MG PO Q6H PRN for NAUSEA OR VOMITING, (Reported) Allergies Coded Allergies: phenobarbital (Verified Allergy, Intermediate, RASH, 06/18/20) phenytoin (Verified Allergy, Intermediate, RASH, 06/18/20) TWILA VERDUZCO MD June 18, 2020 23:33
[2020-06-19] VITALS: BP 115/63
[2020-06-19 00:15] VITALS: BP 122/70
[2020-06-19 00:30] VITALS: BP 118/69
[2020-06-19 00:45] VITALS: BP 117/67
[2020-06-19 01:00] VITALS: BP 112/69
[2020-06-19] MEDS: KCL 10MEQ/100ML SWI (KRUN) 10 MEQ in IV 1 EA IV SCH (01:01)
[2020-06-19 01:10] LABS: HEMATOCRIT 29.1 % (36.0-47.0); HEMOGLOBIN 9.8 g/dl (12.0-15.5)
--- NOTE | 2020-06-19 10:58 | REP ---
INDICATION: abd pain. COMPARISON: Earlier same day without contrast TECHNIQUE: Oral bowel preparatory contrast was administered to this patient as ordered by ordering provider. FINDINGS: Preliminary report was given by Elisa huston. The oral bowel preparatory contrast agent is seen extravasating through the posterior wall of the duodenal sweep and collecting in the right para aortic retroperitoneum. All abnormal air densities seen on the prior exam are again noted and particularly the abnormal intravascular air density in the inferior vena cava. There are no other significant changes compared to the prior exam. IMPRESSION: Small bowel perforation and related findings as described above. <Electronically signed by Yonatan Bonds > 06/19/20 [id number]
== END 2020-06-19 01:20 | disposition short-term general hospital (02) | DRG 720 ==
LOC: EDBD 11:34 → M ED 11:34 → M ED INP 14:19 → ENRESERV 16:41 → M PCU 18:26 → M ICU 21:55
PROVIDERS: ADMIT Internal Medicine; ATTEND Family Medicine
PROC: 30233N1 Transfusion of Nonautologous Red Blood Cells into Peripheral Vein, Percutaneous Approach (ICD-10-PCS; principal; 2020-06-18)
DX: A41.9 Sepsis, unspecified organism (principal); K63.1 Perforation of intestine (nontraumatic); D61.810 Antineoplastic chemotherapy induced pancytopenia; N17.9 Acute kidney failure, unspecified; C79.89 Secondary malignant neoplasm of other specified sites; D70.9 Neutropenia, unspecified; G40.909 Epilepsy, unspecified, not intractable, without status epilepticus; C53.9 Malignant neoplasm of cervix uteri, unspecified; Z92.3 Personal history of irradiation; Z79.01 Long term (current) use of anticoagulants; Z79.899 Other long term (current) drug therapy; Z88.8 Allergy status to other drugs, medicaments and biological substances; Z86.718 Personal history of other venous thrombosis and embolism; Z66 Do not resuscitate